=== PATIENT | female | born 1980 | race Asian ===

== ENCOUNTER 2017-03-02 12:19 | Inpatient (IN) | payer SELFPAY ==
[~2017-03-02] VITALS: Ht 162.6 cm; Wt 87.5 kg
[2017-03-02] MEDS ORDERED: OXYTOCIN 20 UNITS in LACTATED RINGERS 1,000 ML IV SCH ×2 (13:29→17:19)
[2017-03-02] MEDS ORDERED: LACTATED RINGERS 1,000 ML IV SCH (13:29)
[2017-03-02] MEDS ORDERED: NALBUPHINE 10 MG/ML AMP IVP PRN (13:30)
[2017-03-02] MEDS ORDERED: PROMETHAZINE 25 MG/ML VIAL IVP PRN (13:30)
[2017-03-02] MEDS ORDERED: CITRIC ACID/SODIUM CITRATE 30 ML UDC PO SCH (13:30)
[2017-03-02] MEDS ORDERED: OXYTOCIN 10 UNITS/ML VIAL IM SCH (13:30)
[2017-03-02] MEDS ORDERED: FERR-252 PO (14:10)
[2017-03-02] MEDS ORDERED: PREN-380 PO (14:10)
[2017-03-02 14:14] VITALS: BP 108/86
[2017-03-02 15:31] LABS: APPEARANCE,URINE CLEAR (CLEAR); BILIRUBIN,URINE NEGATIVE (NEGATIVE); BLOOD, URINE NEGATIVE (NEGATIVE); COLOR,URINE YELLOW (YELLOW); LEUKOCYTE ESTERASE ,URINE TRACE (NEGATIVE); NITRITE, URINE NEGATIVE (NEGATIVE); UGLUCOSE NEGATIVE (NEGATIVE)
[2017-03-02 15:51] LABS: RBC,URINE 0-5 (RARE) /HPF (0-5)
[2017-03-02 16:02] LABS: BASOPHILS # (AUTO) 0.1 K/uL (0.00-0.22); BASOPHILS % (AUTO) 0.7 % (0.0-2.0); EOSINOPHILS # (AUTO) 0.1 K/uL (0-0.4); EOSINOPHILS % (AUTO) 0.9 % (0.0-4.0); HEMATOCRIT 32.9 % (36-48); LYMPHOCYTES # (AUTO) 1.6 K/uL (2.5-16.5); LYMPHOCYTES % (AUTO) 15.9 % (20.5-51.1); MEAN CORPUSCULAR HEMOGLOBIN 28 pg (27-31); MEAN CORPUSCULAR HGB CONC 33 g/dL (33-37); MEAN CORPUSCULAR VOLUME 85 fL (80-94); MONOCYTES # (AUTO) 0.8 K/uL (0.8-1.0); MONOCYTES % (AUTO) 7.5 % (1.7-9.3); NEUTROPHILS # (AUTO) 7.4 K/uL (1.8-7.7); PLATELET COUNT (AUTO) 241 K/uL (140-450); RED BLOOD CELL COUNT(AUTO) 3.88 MIL/uL (4.20-5.40); RED CELL DISTRIBUTION WIDTH 16.3 % (11.6-13.7)
[2017-03-02] MEDS ORDERED: CITRIC ACID/SODIUM CITRATE 30 ML UDC ONE (16:57)
[2017-03-02] MEDS ORDERED: TRIAMCINOLONE 10 MG/ML 5ML VIAL ONE (17:03)
[2017-03-02] MEDS ORDERED: OXYTOCIN 10 UNITS/ML VIAL ONE (17:03)
[2017-03-02] MEDS ORDERED: ceFAZolin 1,000 MG VIAL IVP ONE (17:07)
[2017-03-02] MEDS ORDERED: MORPHINE PRES FREE 10 MG/10 ML AMP IV ONE (17:13)
[2017-03-02] MEDS ORDERED: ONDANSETRON 4 MG/2 ML VIAL IVP PRN (17:20)
[2017-03-02] MEDS ORDERED: KETOROLAC 30 MG/ML VIAL IVP PRN (17:20)
[2017-03-02] MEDS ORDERED: diphenhydrAMINE 50 MG/ML VIAL IVP PRN (17:20)
[2017-03-02] MEDS ORDERED: NALOXONE 0.4 MG/ML VIAL IVP PRN ×2 (17:20)
[2017-03-02] MEDS ORDERED: IBUPROFEN 800 MG TAB PO PRN (22:05)
[2017-03-02] MEDS ORDERED: HYDROcodone/APAP 5/325 MG 1 TAB TAB PO PRN (22:05)
[2017-03-02] MEDS ORDERED: DOCUSATE SOD/SENNA 50/8.6 MG 1 TAB PO PRN (22:05)
[2017-03-02] MEDS ORDERED: SIMETHICONE 80 MG TAB.CHEW PO PRN (22:05)
[2017-03-02] MEDS ORDERED: oxyCODONE/APAP 5/325 MG 1 TAB TAB PO PRN (22:05)
[2017-03-03] MEDS ORDERED: KETOROLAC 30 MG/ML VIAL IVP PRN (00:35)
[2017-03-03] MEDS ORDERED: OXYTOCIN 20 UNITS/LR PREMIX 1,000 ML IV ONE (00:45)
[2017-03-03] MEDS: OXYTOCIN 20 UNITS in LACTATED RINGERS 1,000 ML IV SCH ×2 (00:59→08:59)
[2017-03-03 07:58] LABS: HEMOGLOBIN 9.8 g/dL (12.0-16.0); MEAN CORPUSCULAR HEMOGLOBIN 28 pg (27-31); MEAN CORPUSCULAR HGB CONC 33 g/dL (33-37); MEAN CORPUSCULAR VOLUME 86 fL (80-94); PLATELET COUNT (AUTO) 243 K/uL (140-450); RED BLOOD CELL COUNT(AUTO) 3.48 MIL/uL (4.20-5.40); RED CELL DISTRIBUTION WIDTH 16.1 % (11.6-13.7); WHITE BLOOD COUNT (AUTO) 13.7 K/uL (4.8-10.8)
--- NOTE | 2017-03-03 09:14 | NUR ---
PATIENT HAS BEEN SCREENED AND CATEGORIZED LOW NUTRITION RISK. PATIENT WILL BE SEEN WITHIN 7 DAYS OF ADMISSION. 03/08/[address]
[2017-03-03 10:15] LABS: EOSINOPHILS % (MANUAL) 1 % (0-4); LYMPHOCYTES % (MANUAL) 12 % (20-46); MONOCYTES % (MANUAL) 7 % (5-12)
[2017-03-03] MEDS ORDERED: INFLUENZA VIRUS VACCINE QUAD 0.5 ML SYR IMVAC SCH (22:10)
== END 2017-03-05 13:30 | disposition home or self-care (01) | DRG 766 ==
LOC: MLD 12:19 → MFCC 18:57
PROVIDERS: ADMIT Obstetrics & Gynecology; ATTEND Obstetrics & Gynecology
PROC: 10D00Z1 Extraction of Products of Conception, Low, Open Approach (ICD-10-PCS; principal; 2017-03-02 17:00)
DX: O34.211 Maternal care for low transverse scar from previous cesarean delivery (principal); Z37.0 Single live birth; Z3A.39 39 weeks gestation of pregnancy
CPT/HCPCS: 36415; 81001; 85025; 86592; 86886; 86900; 86901; 87086; J0690; J2270; J2590; J3301; J7060; J7120